=== PATIENT | male | born 1940 | race Caucasian/White ===

== ENCOUNTER → 2018-09-25 | Outpatient (REF) | payer MEDICARE ==
[~2018-09-25] MED LIST: BABY81CH OR; BYSTOLIC PO; CIPR500T19 OR; FINA5TAB2; FLAG500T OR; GENT3OPD OD; HYDR200T3; JANU100T PO; MELATONIN PO; METF500T13; MIRALEX PO; MULTIVIT PO; PRED25TA
[2018-10-01 00:11] LABS: FATS NEUTRAL Normal (.); FATS TOTAL Normal (.)
== END ==
LOC: M LAB REF 12:55
PROVIDERS: ATTEND Physician Assistant Surgical
DX: R19.4 Change in bowel habit (principal)

== ENCOUNTER → 2018-09-30 | Outpatient (CLI) | payer MEDICARE ==
[2018-09-30 10:02] LABS: HEMATOCRIT 48.2 % (42.0-52.0); HEMOGLOBIN 16.1 g/dl (13.5-17.5); MEAN CORPUSCULAR HEMOGLOBIN 30.7 pg (27.0-33.0); MEAN CORPUSCULAR HGB CONC 33.4 g/dl (32.0-36.5); MEAN CORPUSCULAR VOLUME 91.8 fl (80.0-96.0); PLATELET COUNT, AUTOMATED 183 10^3/uL (150-450); RED BLOOD COUNT 5.25 10^6/uL (4.30-6.10); WHITE BLOOD COUNT 7.7 10^3/uL (4.0-10.0)
== END ==
LOC: M LAB 09:36
PROVIDERS: ATTEND Internal Medicine Gastroenterology
DX: K92.1 Melena (principal)

== ENCOUNTER → 2018-12-14 | Outpatient (REF) | payer MEDICARE ==
[~2018-12-14] MED LIST changes: +GENT0.3S36 OD; -GENT3OPD OD
== END ==
LOC: M LAB REF 09:09
PROVIDERS: ATTEND Internal Medicine Gastroenterology
DX: R10.9 Unspecified abdominal pain (principal)

== ENCOUNTER → 2020-03-04 | Outpatient (CLI) | payer MEDICARE ==
[~2020-03-04] MED LIST changes: +READI-CAT 2 As Ordered ONE; +VoLumen 0.1% SUSPENSION 450ML BOTTLE As Ordered ONE
--- NOTE | 2020-03-04 16:27 | REP ---
REASON FOR EXAM: History of BPH. COMPARISON: 07/28/2018, also without contrast. The lack of intravenous contrast decreases the sensitivity of the exam. The lung bases are clear. Limited evaluation of the solid intra-abdominal organs and gallbladder shows no changes from the prior exam. There are hepatic cysts, status quo. Limited evaluation of the pancreas, adrenal glands, and kidneys shows no significant changes from the prior exam, although seen in a limited fashion. Within or abutting the distal left ureter, is an oval-shaped 1-cm sized calcification. There is no hydronephrosis or hydroureter, however. There is an asymmetric density in the floor of the urinary bladder on the left, and I cannot discern whether or not this is from asymmetric prostatomegaly or a urinary bladder floor mass. There is no significant change in appearance of bowel loops or their mesenteries. There is diverticulosis, status quo. There is corpora amylacea, status quo. There is no significant change in appearance of the abdominal aorta or periaortitic regions. There is no significant change in appearance of the osseous structures. IMPRESSION: 1. There is a left hemipelvic calcification, as described above. I cannot discern whether or not this is within the distal left ureter or abuts and displaces the distal left ureter. A calcification was seen in that region on the 07/28/2018 CT, but no calcification was seen in that exact region on the 05/07/2014 exam. It is unlikely that a calcification of that size would not be causing any hydronephrosis or hydroureter, however, this needs to be correlated clinically with appropriate followup. There are other findings involving the urinary bladder, as described above. I cannot rule out the possibility of a urinary bladder mass. This too needs to be correlated clinically with appropriate followup. 2. There are other findings and chronic changes, as described above. There are small simple renal cysts suggested on this limited noncontrast enhanced CT and there are, what appear to be, unchanged hepatic cysts. Urological consultation is recommended. A contrast-enhanced CT examination of the abdomen and pelvis is recommended. Electronically Signed by Oswaldo Carranza DO 03/04/2020 05:04 P
== END ==
LOC: M RAD 10:54
PROVIDERS: ATTEND Physician Assistant
DX: R10.9 Unspecified abdominal pain (principal)

== ENCOUNTER → 2020-04-07 | Outpatient (CLI) | payer MEDICARE ==
[~2020-04-07] MED LIST changes: +ISOVUE-370 76% 100ML VIAL As Ordered ONE; -READI-CAT 2 As Ordered ONE; -VoLumen 0.1% SUSPENSION 450ML BOTTLE As Ordered ONE
--- NOTE | 2020-05-13 11:37 | REP ---
CT OF THE ABDOMEN AND PELVIS WITHOUT AND WITH IV CONTRAST, CT UROGRAM FOR EVALUATION OF DISTAL LEFT URETERAL CALCULUS AND BLADDER/PROSTATE MASS. 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 COMPARISON: 03/04/2020 FINDINGS: On the images without IV contrast, there is an ovoid calcification posterolateral to the bladder on the left measuring 12 x 7 mm, similar to the prior study. On the CT urogram, there is satisfactory opacification of both right and left ureters. This calcification appears to be within the distal left ureter at its junction with the urinary bladder. However, there is no left hydronephrosis or hydroureter indicating that the calculus is nonobstructive, in spite of its size. The prostate is enlarged and effaces the bladder base; however, the interface has an irregular margin. Therefore, I am unable to exclude a bladder wall mass adjacent to the prostatic, vs invasive prostate carcinoma.. I would recommend MRI and cystoscopy to assist in this differentiation. The distal left ureteral calculus and distal left ureter enter the bladder along the superior margin of this mass-like density in the bladder. There is a right renal lower pole cyst measuring 18 mm in diameter. It is sharply marginated without calcifications or septations. This is a Bosniak type 1 cyst. No solid renal masses are identified. There are multiple hepatic cysts. Some of these have slightly increased in size from 07/23/2011. The hepatic parenchyma is otherwise unremarkable. The gallbladder, pancreas, and spleen are unremarkable. The adrenals are unremarkable. Abdominal aorta is unremarkable except for calcified atheroma. There is no periaortic adenopathy. Bowel and mesentery are unremarkable. Pelvis: Prostate is enlarged and effaces the bladder base, as discussed in detail above. There are prostatoliths. There is no pelvic, retroperitoneal, or abdominal adenopathy. IMPRESSION: The large calcification identified in the pelvis on the left previously appears to be in the distal left ureter, however, does not cause hydronephrosis or hydroureter, in spite of its large size. There is a mass-like lesion in the bladder wall as described. This could represent a bladder mass, bladder wall effacement from the enlarged prostate, invasive prostate carcinoma or combination. I would recommend MRI and cystoscopy for further evaluation. There is no pelvic or abdominal adenopathy. No ascites. There are renal cysts and hepatic cysts, not significantly changed from prior studies. MTDD
== END ==
LOC: M RAD 10:41
PROVIDERS: ATTEND Urology
DX: R93.41 Abnormal radiologic findings on diagnostic imaging of renal pelvis, ureter, or bladder (principal)
CPT/HCPCS: 74178; Q9967

== ENCOUNTER → 2020-08-16 | Outpatient (CLI) | payer MEDICARE ==
[~2020-08-16] MED LIST changes: -ISOVUE-370 76% 100ML VIAL As Ordered ONE
[2020-08-16 13:53] LABS: BASO % 0.4 % (0.0-1.0); EOS % 0.4 % (0.0-3.0); HEMOGLOBIN 14.8 g/dl (13.5-17.5); LYMPH % 14.7 % (24.0-44.0); MEAN CORPUSCULAR HEMOGLOBIN 29.8 pg (27.0-33.0); MEAN CORPUSCULAR HGB CONC 32.2 g/dl (32.0-36.5); MEAN CORPUSCULAR VOLUME 92.6 fl (80.0-96.0); MONO # 0.6 10^3/uL (0.0-0.8); MONO % 8.9 % (0.0-5.0); NEUTROPHILS # 5.3 10^3/uL (1.5-8.5); PLATELET COUNT, AUTOMATED 168 10^3/uL (150-450); RED BLOOD COUNT 4.97 10^6/uL (4.30-6.10); WHITE BLOOD COUNT 7.1 10^3/uL (4.0-10.0)
[2020-08-16 14:22] LABS: ALBUMIN 3.9 GM/DL (3.2-5.2); ALT/SGPT 16 U/L (12-78); BILIRUBIN,TOTAL 0.8 MG/DL (0.2-1.0); BLOOD UREA NITROGEN 15 MG/DL (7-18); CALCIUM LEVEL 9.3 MG/DL (8.8-10.2); CARBON DIOXIDE LEVEL 30 MEQ/L (21-32); CHLORIDE LEVEL 107 MEQ/L (98-107); CHOLESTEROL LEVEL 160 MG/DL (<200); CHOLESTEROL RISK RATIO 3.018 (<5); CREATININE FOR GFR 0.92 MG/DL (0.70-1.30); GLOMERULAR FILTRATION RATE > 60.0 (>35); GLUCOSE, FASTING 142 MG/DL (70-100); HDL CHOLESTEROL 53 MG/DL (>40); LDL CHOLESTEROL 94 MG/DL (<100); NON-HDL-C 107 MG/DL; POTASSIUM SERUM 4.2 MEQ/L (3.5-5.1); SODIUM LEVEL 142 MEQ/L (136-145); TOTAL PROTEIN 6.5 GM/DL (6.4-8.2); TRIGLYCERIDES LEVEL 67 MG/DL (<150)
[2020-08-16 14:28] LABS: TOTAL 25(OH) VITAMIN D 42.8 NG/ML (30.0-100.0)
[2020-08-16 14:40] LABS: HEMOGLOBIN A1c 6.4 %
== END ==
LOC: M PLALAB 10:42
PROVIDERS: ATTEND Physician Assistant
DX: E11.65 Type 2 diabetes mellitus with hyperglycemia (principal); Z79.899 Other long term (current) drug therapy

== ENCOUNTER → 2022-03-16 | Outpatient (CLI) | payer MEDICARE ==
[2022-03-16 10:21] LABS: HEMATOCRIT 42.6 % (42.0-52.0); HEMOGLOBIN 14.3 g/dl (13.5-17.5); MEAN CORPUSCULAR HEMOGLOBIN 30.5 pg (27.0-33.0); MEAN CORPUSCULAR HGB CONC 33.6 g/dl (32.0-36.5); MEAN CORPUSCULAR VOLUME 90.8 fl (80.0-96.0); PLATELET COUNT, AUTOMATED 176 10^3/uL (150-450); RED BLOOD COUNT 4.69 10^6/uL (4.30-6.10); WHITE BLOOD COUNT 7.3 10^3/uL (4.0-10.0)
[2022-03-16 10:32] LABS: INR 1.04
[2022-03-16 10:46] LABS: ERYTHROCYTE SEDIMENTATION RATE 4 mm/hr (0-20)
[2022-03-16 11:05] LABS: ALBUMIN 3.5 GM/DL (3.2-5.2); ALT/SGPT 20 U/L (12-78); BILIRUBIN,TOTAL 0.4 MG/DL (0.2-1.0); BLOOD UREA NITROGEN 17 MG/DL (7-18); CALCIUM LEVEL 9.1 MG/DL (8.8-10.2); CARBON DIOXIDE LEVEL 30 MEQ/L (21-32); CHLORIDE LEVEL 106 MEQ/L (98-107); CREATININE FOR GFR 0.86 MG/DL (0.70-1.30); GLOMERULAR FILTRATION RATE > 60.0 (>35); GLUCOSE, FASTING 235 MG/DL (70-100); POTASSIUM SERUM 4.1 MEQ/L (3.5-5.1); SODIUM LEVEL 139 MEQ/L (136-145); TOTAL PROTEIN 6.3 GM/DL (6.4-8.2)
== END ==
LOC: M RAD 09:38
PROVIDERS: ATTEND Orthopaedic Surgery
DX: M17.12 Unilateral primary osteoarthritis, left knee (principal); I70.0 Atherosclerosis of aorta; M47.9 Spondylosis, unspecified; I49.9 Cardiac arrhythmia, unspecified

== ENCOUNTER → 2022-07-20 | Outpatient (REF) | payer MEDICARE ==
[2022-07-20 14:45] LABS: CRYSTALS, BODY FLUID NONE SEEN (NONE SEEN); SOURCE, BODY FLUID CRYSTALS LFT KNEE
[2022-07-20 14:48] LABS: SOURCE, BODY FLUID LFT KNEE; SYNOVIAL FLUID COLOR RED (COLORLESS)
[2022-07-20 15:12] LABS: SOURCE, BODY FLUID GLUCOSE LFT KNEE
== END ==
LOC: M LAB REF 13:09
PROVIDERS: ATTEND Orthopaedic Surgery
DX: M25.462 Effusion, left knee (principal)

== ENCOUNTER → 2022-07-27 | Outpatient (CLI) | payer MEDICARE | LOC: M LAB 10:44 | PROVIDERS: ATTEND Orthopaedic Surgery | DX: Z96.652 Presence of left artificial knee joint (principal); M25.462 Effusion, left knee; M25.562 Pain in left knee ==

== ENCOUNTER → 2022-07-29 | Outpatient (REF) | payer MEDICARE | LOC: M LAB REF 10:56 | PROVIDERS: ATTEND Physician Assistant | DX: R19.7 Diarrhea, unspecified (principal) ==

== ENCOUNTER → 2022-07-31 | Outpatient (CLI) | payer MEDICARE ==
[2022-07-31 16:31] LABS: C REACTIVE PROTEIN QUANTITATIV < 0.40 MG/DL (<1.0)
== END ==
LOC: M PLALAB 13:23
PROVIDERS: ATTEND Internal Medicine Infectious Disease
DX: M25.562 Pain in left knee (principal); Z12.5 Encounter for screening for malignant neoplasm of prostate
CPT/HCPCS: 36415; 85652; 86140; 86618; G0103

== ENCOUNTER → 2022-08-15 | Outpatient (CLI) | payer MEDICARE ==
[~2022-08-15] MED LIST changes: +ISOVUE-370 76% 100ML VIAL As Ordered ONE; +READI-CAT 2 As Ordered ONE
== END ==
LOC: M RAD 13:30
PROVIDERS: ATTEND Physician Assistant
DX: R63.4 Abnormal weight loss (principal); K57.90 Diverticulosis of intestine, part unspecified, without perforation or abscess without bleeding
CPT/HCPCS: 71260; 74177; Q9967

== ENCOUNTER → 2023-05-23 | Outpatient (CLI) | payer MEDICARE ==
[~2023-05-23] MED LIST changes: -HYDR200T3; +HYDR200T46; -ISOVUE-370 76% 100ML VIAL As Ordered ONE; -READI-CAT 2 As Ordered ONE
== END ==
LOC: M WHC 13:14
PROVIDERS: ATTEND Physician Assistant
DX: Z87.442 Personal history of urinary calculi (principal); N28.1 Cyst of kidney, acquired

== ENCOUNTER → 2023-06-18 | Outpatient (CLI) | payer MEDICARE | LOC: M PLALAB 11:18 | DX: R97.20 Elevated prostate specific antigen [PSA] (principal) ==

== ENCOUNTER → 2023-08-20 | Outpatient (CLI) | payer MEDICARE | LOC: M PLAIMG 13:40 | PROVIDERS: ATTEND Physician Assistant | DX: M25.511 Pain in right shoulder (principal); M19.011 Primary osteoarthritis, right shoulder ==